=== PATIENT | male | born 1985 | race Two or more races ===

== ENCOUNTER 2024-04-02 12:22 | Emergency (ER) | payer OTHER ==
[~2024-04-02] VITALS: Ht 182.9 cm; Wt 92.1 kg
[2024-04-02] MEDS ORDERED: ONDANSETRON HCL/PF 4 MG/2 ML VIAL ONE (12:57)
[2024-04-02] MEDS ORDERED: MORPHINE SULFATE INJ 4 MG/ML DISP.SYRIN ONE ×2 (12:57→16:03)
[2024-04-02] MEDS: IV NS 0.9% 500 ML BAG IV ONE (13:02)
[2024-04-02] MEDS: MORPHINE SULFATE INJ 2 MG/ML DISP.SYRIN IV ONE ×2 (13:02→16:06)
[2024-04-02] MEDS: ONDANSETRON HCL/PF 4 MG/2 ML VIAL IVP ONE (13:02)
[2024-04-02 13:20] LABS: BASOPHILS # (AUTO) 0.1 K/uL (0.0-0.2); BASOPHILS % (AUTO) 0.7 % (0.0-2.0); EOSINOPHILS # (AUTO) 0.2 K/uL (0.0-0.7); EOSINOPHILS % (AUTO) 2.1 % (0.0-6.0); HEMATOCRIT 49 % (39-51); HEMOGLOBIN 16.1 g/dL (13.5-17.5); LYMPHOCYTES # (AUTO) 3.7 K/uL (0.8-4.8); MEAN CORPUSCULAR HEMOGLOBIN 28 PG (26.0-33.0); MEAN CORPUSCULAR HGB CONC 33 g/dl (31.0-36.0); MEAN CORPUSCULAR VOLUME 85 fL (80-96); MONOCYTES # (AUTO) 0.6 K/uL (0.1-1.30); MONOCYTES % (AUTO) 6.9 % (2.0-12.0); NEUTROPHILS # (AUTO) 4.7 K/uL (1.8-8.9); NEUTROPHILS % (AUTO) 50.3 % (43.0-81.0); PLATELET COUNT (AUTO) 275 K/uL (150-450); RED BLOOD CELL COUNT(AUTO) 5.68 MIL/uL (4.5-6.0); RED CELL DISTRIBUTION WIDTH 13.8 % (11.5-15.0); WHITE BLOOD COUNT (AUTO) 9.2 K/uL (4.3-11.0)
[2024-04-02 13:34] LABS: CALCIUM, SERUM 9.6 mg/dL (8.5-10.1); CARBON DIOXIDE 30 mmol/L (21-32); CHLORIDE 103 mmol/L (98-107); CREATININE 1.1 mg/dL (0.6-1.3); GLUCOSE 91 mg/dL (74-106); POTASSIUM 3.7 mmol/L (3.5-5.1); SODIUM SERUM 140 mmol/L (136-145); UREA NITROGEN, BLOOD 9 mg/dL (7-18)
[2024-04-02] MEDS ORDERED: IOHEXOL-350 100 ML VIAL IV ONE (13:34)
[2024-04-02] MEDS ORDERED: IV NS 0.9% 250 ML IV ONE (13:35)
[2024-04-02] MEDS ORDERED: CT SWABBABLE VALVE TRANS SET 1 EA INFUS.SET MC ONE (13:35)
[2024-04-02 13:45] LABS: ALANINE AMINOTRANSFERASE 51 U/L (12-78); ALBUMIN 3.7 g/dL (3.4-5.0); ALKALINE PHOSPHATASE 93 U/L (46-116); ASPARTATE AMINOTRANSFERASE 15 U/L (15-37); BILIRUBIN,DIRECT 0.2 mg/dL (0.0-0.2); BILIRUBIN,TOTAL 1.1 mg/dL (0.2-1.0); NT-PRO BNP 33 pg/mL (0-125); TOTAL PROTEIN, SERUM 7.7 g/dL (6.4-8.2)
[2024-04-02] MEDS ORDERED: NAPR-1164 PO (14:34)
[2024-04-02 16:29] VITALS: BP 112/74; TEMP 98.2; O2SAT 99
== END 2024-04-02 16:30 | disposition home or self-care (01) ==
LOC: ER 12:22
DX: R09.1 Pleurisy (principal); R07.89 Other chest pain; M54.9 Dorsalgia, unspecified; R03.0 Elevated blood-pressure reading, without diagnosis of hypertension
CPT/HCPCS: 99285; 74174; 96374; 71275; 71045; 96361; 96375; 93005 ×2; 85025; 80048; 80076; 36415; 84484 ×2; 83880; 96376; J2270 ×2; J2405; J7050; J7040; Q9967